=== PATIENT | male | born 1935 | race African-American/Black ===

== ENCOUNTER 2019-11-01 15:39 | Inpatient (IN) | payer OTHER, MEDICARE ==
[~2019-11-01 15:39] MED LIST: Lidocaine 1% PF 5 ML VIAL ONE; PHENYLEPHRINE-NS 100 MCG/ML 10 ML SYRINGE ONE; PROPOFOL 200 MG/20 ML VIAL ONE; Succinylcholine Chloride 20 MG/ML 10 ml SYRINGE FS ONE; ePHEDrine/0.9% NaCl/PF SYRINGE 50 mg/10 ml ONE
[2019-11-01 16:25] LABS: Mean Corpuscular HGB CONC 30.7 g/dL (32.0-36.0); Mean Corpuscular Hemoglobin 27.1 pg (27.0-31.0); Mean Corpuscular Volume 88.2 fL (78.0-98.0); Mean Platelet Volume 7.8 fL (7.4-10.4); Platelet Count 338 thou/uL (130-400); RBC Distribution Width 15.7 % (11.5-14.5); Red Blood Cell (RBC) Count 4.05 mill/uL (4.70-6.10)
[2019-11-01 16:30] LABS: INR-International Normal Ratio 1.2; PTT 35.2 SEC (22.9-36.1); Prothrombin Time 15.1 SEC (12.0-14.7)
--- NOTE | 2019-11-01 16:33 | CT ---
CT head noncontrast HISTORY: Right head injury. FINDINGS: There is no evidence of acute intracranial hemorrhage or infarct. Postoperative changes rig ht frontal calvarium with large area of encephalomalacia involving the right frontal lobe. Diffuse cortical atrophy. Mild chronic ischemic small vessel disease. There is no mass effect or shift of mid line structures. Visualized paranasal sinuses remain well-aerated. Frontal scalp laceration apparent. IMPRESSION: Chronic-type findings as detailed above. No acute intracranial abnormalities are demonstr ated.
[2019-11-01 16:43] LABS: ALT (SGPT) 8 U/L (8-55); AST (SGOT) 18 U/L (5-34); Albumin 3.4 g/dL (3.4-4.8); Alkaline Phosphatase 84 U/L (40-110); Anion Gap 11 mmol/L (10-20); BUN (Urea Nitrogen) 25 mg/dL (8.4-25.7); Bilirubin, Total 0.2 mg/dL (0.2-1.2); Calc. Creatinine Clearance 0 mL/min (70-130); Calcium 8.3 mg/dL (7.8-10.44); Carbon Dioxide 28 mmol/L (23-31); Chloride 103 mmol/L (98-107); Estimated GFR-MDRD 47; Globulin 4.1 g/dL (2.4-3.5); Glucose 107 mg/dL (83-110); Potassium 4.9 mmol/L (3.5-5.1); Protein, Total 7.5 g/dL (5.8-8.1); Sodium 137 mmol/L (136-145)
[2019-11-01 16:46] LABS: Anisocytosis SLIGHT = 6-15 cells (100X) (0-5/hpf); Band 18 % (5-11); Eosinophils 2 % (0-10); Lymphocytes 18 % (21-51); MDiff Complete? YES; Monocytes 9 % (0-10); Neutrophil 45 % (42-75); Ovalocytes SLIGHT = 2-5 cells (100X) (0-1/hpf); Poikilocytosis SLIGHT = 6-15 cells (100X) (0-5/hpf); Reactive Lymphocytes 8 % (0-10); Schistocytes SLIGHT = 2-5 cells (100X) (0-1/hpf)
[2019-11-01] MEDS ORDERED: Dextrose 5% in Water 1,000 ML IV PRN (17:04)
[2019-11-01] MEDS ORDERED: Ondansetron PF 4 MG/2 ML Vial IVP PRN (17:04)
[2019-11-01] MEDS ORDERED: Dextrose 50% Abboject 50 ML SYRINGE SLOW IVP PRN (17:04)
[2019-11-01] MEDS ORDERED: hydrALAZINE 20 MG/ML VIAL SLOW IVP PRN (17:04)
[2019-11-01] MEDS ORDERED: traMADol HCl 50 MG TAB PO PRN ×2 (17:07)
[2019-11-01] MEDS ORDERED: Adacel (T-DAP) 0.5 ML SYRINGE ONE (17:12)
[2019-11-01] MEDS ORDERED: hydrALAZINE 20 MG/ML VIAL ONE (17:12)
[2019-11-01] MEDS ORDERED: hydrALAZINE 20 MG/ML VIAL SLOW IVP SCH (17:30)
[2019-11-01 17:48] LABS: Phosphorus 3.1 mg/dL (2.3-4.7)
[2019-11-01] MEDS ORDERED: PHOS-NAK 1 PKT PACK PO SCH ×2 (18:15→19:00)
--- NOTE | 2019-11-01 18:31 | RAD ---
PORTABLE CHEST: 11/01/2019 PROVIDED CLINICAL HISTORY: Preop. FINDINGS: The cardiac silhouette appears prominently enlarged. No focal consolidation, pleural fluid or pneumot horax evident. IMPRESSION: Marked enlargement of the cardiac silhouette without evidence for an acute cardiopulmonary process. POS: MANEULITO
--- NOTE | 2019-11-01 18:38 | HP ---
TRAUMA SURGEON: Raymon Pereira DO CONSULTING PHYSICIAN: Dr. Alexander of [facility]. HISTORY OF PRESENT ILLNESS: The patient is an 84-year-old male, who presented to the emergency department after a mechanical fall on Eliquis. The patient reports he tripped on the ledge at the postop office. He denies loss of consciousness or C-spine pain. He is on Eliquis for atrial fibrillation. Emergency room physician reported a large head laceration with difficulty to control bleeding. [facility] was contacted and will take the patient to the OR urgently for hemorrhage control as well as laceration repair. Upon my evaluation, the patient was hemodynamically stable and his mentation was at baseline with a GCS of 15. He reported his pain is well controlled, but was quite hypertensive with systolic blood pressures in the 190s. He did take his medications today. He denies loss of consciousness, nausea, vomiting, diarrhea, chest pain, or difficulty with vision. REVIEW OF SYSTEMS: All additional 10-point review of systems is negative except as indicated above. 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 PAST SURGICAL HISTORY: Brain surgery of some sort for previous TBI. He has no residual deficit. SOCIAL HISTORY: The patient denies drug, alcohol, and tobacco use. He lives at home alone and his daughter helps to take care of him. MEDICATIONS: The patient is not sure if these are all of his medications, but he takes, 1. Eliquis. 2. Carvedilol. 3. Lisinopril. 4. Amlodipine. ALLERGIES: NO KNOWN DRUG ALLERGIES. PHYSICAL EXAMINATION: VITAL SIGNS: Temperature 98.8, pulse 67, respirations 18, oxygen saturation 98% on room air, blood pressure 195/86. PRIMARY SURVEY: Airway intact. Adequate breath sounds bilaterally. 2+ pulses in bilateral radials, femorals, and DPs. GCS 15. Gross motor and sensation are intact. Emergency room physician reported a large head laceration, for which a pressure dressing has been placed. There is no active bleeding noted at this time. It was not removed in the emergency department to maintain hemostasis. SECONDARY SURVEY: HEAD: Normocephalic with a large anterior head laceration with bleeding that is controlled. EYES: Pupils 3 to 2, equal, round, and reactive to light bilaterally. No signs of eye trauma. ENT: No hemotympanum. No epistaxis. No septal hematoma. Midface is stable to manipulation. No blood in the oropharynx. Dentition is intact; however, the patient has poor dental health. No anterior neck injury/crepitus/tenderness. C-SPINE: No step-offs or deformities. Nontender. C-collar not in place. CHEST: Nontender. No crepitus. No abrasions or ecchymosis. Equal chest movement. ABDOMEN: Soft, nontender, nondistended. PELVIS: Stable to palpation. Nontender. No abrasions or ecchymosis. RECTAL: Deferred. GENITOURINARY: Deferred. EXTREMITIES: No gross deformities. No abrasions or ecchymosis noted. 2+ pulses in bilateral radials, femorals, and DPs. BACK/SPINE: No step-offs, deformities, or tenderness to palpation of the thoracic or lumbar spine. No abrasions or ecchymosis noted. NEUROLOGIC: 5/5 strength in the bilateral forming machine adjuster, plantar flexion, and dorsiflexion. Gross normal sensation x4 extremities. LABORATORY FINDINGS: White count 5.0, hemoglobin 11.0, hematocrit 35.7, platelets 338. INR 1.2. Sodium 137, potassium 4.8, chloride 105, bicarb 28, BUN 25, creatinine 1.68, glucose 107, phosphorus 3.1, magnesium 2.0. DIAGNOSTIC FINDINGS: CT scan of the brain demonstrates chronic top findings as detailed above. No acute intracranial abnormalities are demonstrated. Chest x-ray has been completed, but no official report has been generated yet. We will follow it up. ASSESSMENT: 1. Status post mechanical fall, on Eliquis. 2. Large left head laceration. 3. Acute kidney injury. PLAN: The patient will go to the OR urgently with Dr. Alexander of [facility]. In the emergency department, he is to receive 10 mg of IV hydralazine, 500 mL of normal saline, tetanus shot, and 2 g of Ancef. These have been communicated to the nurse and they were entered into the computer. We will hold his Eliquis for now. He is n.p.o. and will receive normal saline at 100 an hour. We will repeat his blood work in the morning. We will also restart his home medications as clinically indicated with the exception of Eliquis. Tomorrow, he will work with Physical Therapy and his wound will be re-evaluated. He will likely not need placement at a rehab facility, but we will continue to follow. This patient was discussed with Dr. Pereira before this dictation. Job ID: [id number]
[2019-11-01] MEDS ORDERED: Lidocaine 1% w/Epinephrine 1:100K 20 ML VIAL ONE ×2 (19:23→22:49)
[2019-11-01] MEDS ORDERED: Bupivacaine 0.25% HCL 30 ML VIAL ONE (19:23)
[2019-11-01] MEDS ORDERED: Bupivacaine PF 0.5% 30 ML VIAL ONE (19:23)
[2019-11-01] MEDS ORDERED: Fentanyl 100 MCG/2 ML VIAL ONE (20:55)
[2019-11-01] MEDS ORDERED: Bacitracin Zinc Ointment 30 gm TUBE ONE (22:37)
[2019-11-01] MEDS ORDERED: Promethazine HCl 25 MG/ML VIAL IM PRN ×2 (22:42→23:01)
[2019-11-01] MEDS ORDERED: Promethazine HCl 25 MG/ML VIAL SLOW IVP PRN ×2 (22:42→23:01)
[2019-11-01] MEDS ORDERED: Ondansetron HCl/PF 4 MG/2 ML Vial IVP PRN ×2 (22:42→23:01)
--- NOTE | 2019-11-02 00:25 | CON ---
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 The patient reports negative loss of consciousness. No changes in vision or mentation. Has a history of taking Eliquis for atrial fibrillation with difficulty controlling bleeding early on in the emergency room today. Upon my evaluation, the patient was hemodynamically stable with a good pressure head wrap dressing in place with controlled hemostasis. REVIEW OF SYMPTOMS: Negative except for generalized head pain. PAST MEDICAL HISTORY: 1. Atrial fibrillation. 2. Hypertension. MEDICATIONS: 1. Eliquis. 2. Carvedilol. 3. Lisinopril. 4. Amlodipine. ALLERGIES: NO KNOWN DRUG ALLERGIES. PAST SURGICAL HISTORY: Previous surgery for TBI. SOCIAL HISTORY: Negative for tobacco, alcohol, recreational drug use. Patient lives at home alone. Daughter helps take care of him, who is present at bedside. PHYSICAL EXAMINATION: VITAL SIGNS: Within normal limits except for hypertension present at 195/88. GENERAL: The patient is awake, alert, and oriented. No acute distress, sitting in bed comfortably. HEENT: There is a head wrap dressing in place with no appreciable bleeding through the margins of the gauze. The patient's pupils equal, round, and reactive to light. Extraocular movements intact. Visual acuity grossly intact. Nasal bridge symmetrical. No epistaxis. Ears within normal limits. Mandibular range of motion within normal limits. No appreciable intraoral trauma. The patient has edentulous maxilla. Partially edentulous mandible with generalized periodontal disease and hopeless dentition. LABORATORY FINDINGS: White blood cell count 5, hemoglobin 11, hematocrit 35.7, platelets 338. INR 1.2. CT of the brain revealed no acute intracranial abnormalities. ASSESSMENT: This 84-year-old male status post fall with large scalp and forehead laceration, degloving. PLAN: The patient will go to the operating room for closure of the scalp and facial laceration under general anesthesia. The procedure and plan were discussed with the patient and the patient's daughter, who agree. Informed consent was obtained. Job ID: [id number] MTDD
[2019-11-02] MEDS: Acetaminophen 500 MG TAB PO SCH ×5 (00:31→14:29)
[2019-11-02] MEDS: Senokot S 8.6-50 MG TAB PO SCH ×2 (00:31→09:47)
[2019-11-02] MEDS: Sodium Chloride 0.9% 1,000 ML IV SCH ×3 (00:31→12:33)
[2019-11-02 00:59] VITALS: BMI 24.3
[2019-11-02 06:27] LABS: #Lymphocytes 0.7 thou/uL (1.20-3.40); #Monocytes 0.9 thou/uL (0.11-0.59); %Basophils 0.2 % (0.0-1.0); %Eosinophils 0.3 % (0.0-10.0); %Lymphocytes 9.3 % (21.0-51.0); %Monocytes 11.4 % (0.0-10.0); %Neutrophils 78.8 % (42.0-75.0); Hemoglobin 10.1 g/dL (14.0-18.0); Mean Corpuscular HGB CONC 31.6 g/dL (32.0-36.0); Mean Corpuscular Hemoglobin 27.4 pg (27.0-31.0); Mean Corpuscular Volume 86.6 fL (78.0-98.0); Mean Platelet Volume 8.4 fL (7.4-10.4); Platelet Count 273 thou/uL (130-400); RBC Distribution Width 15.6 % (11.5-14.5); Red Blood Cell (RBC) Count 3.68 mill/uL (4.70-6.10); White Blood Cell (WBC) Count 7.6 thou/uL (4.8-10.8)
[2019-11-02] MEDS ORDERED: Prevnar 13-Val Conj/PF 0.5 ML SYRINGE IM ONE (09:00)
[2019-11-02] MEDS ORDERED: FLU VACC TS2019-20(65YR UP)/PF 180 MCG/0.5 ML SYRINGE IM ONE (09:00)
[2019-11-02] MEDS ORDERED: Polyethylene Glycol 3350 17 GM Packet PO SCH (09:00)
[2019-11-02 15:07] VITALS: BP 118/69; TEMP 97.5
--- NOTE | 2019-11-02 15:53 | OP ---
DATE OF PROCEDURE: 11/01/2019 PREOPERATIVE DIAGNOSIS: 17 cm complex stellate forehead and scalp laceration. POSTOPERATIVE DIAGNOSIS: 17 cm complex stellate forehead and scalp laceration. PROCEDURE PERFORMED: Closure of complex forehead and scalp laceration. ANESTHESIA: General endotracheal anesthesia. INDICATIONS FOR PROCEDURE: This is an 84-year-old male, status post fall at the post office, resulting in a complex laceration and degloving of the anterior scalp and forehead requiring closure in the operating room under general anesthesia. DESCRIPTION OF PROCEDURE: The patient was met in the preoperative holding area. The risks, benefits, alternatives of procedure were discussed in detail with the patient and the patient's family. Questions were sought and answered. Informed consent was obtained. The patient was transferred to the operating room and to the OR table, where a safety belt was secured. Standard ASA monitors were attached and the patient was noted to have stable vital signs. IV induction by Anesthesia with endotracheal intubation x1 without complication and endotracheal tube was secured in a standard fashion. The patient was prepped and draped in a sterile fashion, and a time-out was performed. We began the procedure by copiously irrigating the wound with normal saline. This was a clean wound without gross debris identified. Exam revealed a curvilinear 13 cm laceration with a horizontal midline extension of approximately 4 cm. Wound margins were macerated and stellate. There was also a degloving of frontalis muscle off the anterior scalp. The wound was closed in layers using a combination of deep suturing with 3-0 and 4-0 Vicryls, and skin was closed with running interrupted 5-0 fast-absorbing gut sutures. Hemostasis was well controlled during the procedure with no evidence of hematoma formation at the end of the procedure. Bacitracin was placed along the wounds. Adaptic was placed over the wound margins. A pressure dressing was placed and this concluded the procedure. The patient was extubated in the room and returned to the PACU in stable condition. FLUIDS: See anesthesia records. ESTIMATED BLOOD LOSS: 40 mL. DRAINS: None. SPECIMENS: None. COUNTS: Needle and sponge count verified as correct. IMPLANTS: None. Job ID: [id number]
== END 2019-11-02 18:26 | disposition home or self-care (01) | DRG 580 ==
LOC: ERS 15:39 → SURG A 18:16 → ERS 18:16 → SDC/OP 18:43 → SURG A 23:08
PROVIDERS: ADMIT Surgery; ATTEND Surgery
PROC: 0KQ00ZZ Repair Head Muscle, Open Approach (ICD-10-PCS; principal; 2019-11-02)
DX: S09.12XA Laceration of muscle and tendon of head, initial encounter (principal); N17.9 Acute kidney failure, unspecified; I10 Essential (primary) hypertension; I48.91 Unspecified atrial fibrillation; Z98.890 Other specified postprocedural states; W01.0XXA Fall on same level from slipping, tripping and stumbling without subsequent striking against object, initial encounter; Y93.89 Activity, other specified; Y92.098 Other place in other non-institutional residence as the place of occurrence of the external cause
CPT/HCPCS: 36415; 70450; 71045; 80053; 83735; 84100; 85025; 85610; 85730; 86850; 86900; 86901; 90471; 90662; 90715; 93005; G0008; G0390; J0360; J0690; J2001; J2704; J3010; S0020